=== PATIENT | female | born 1960 | race Caucasian/White ===

== ENCOUNTER 2017-04-07 05:35 | Inpatient (IN) | payer SELFPAY ==
[2017-04-07] MEDS ORDERED: NON FORMULARY ITEM (Albuterol Sulfate (Ventolin Hfa Inhaler) 2 PUFF) INH ×2 (11:00)
[2017-04-07] MEDS: oxyCODONE/APAP 10/325 1 TAB TABLET PO ×6 (11:20→23:30)
[2017-04-07] MEDS: BACLOFEN 10 MG TABLET. PO ×6 (11:20→20:56)
[2017-04-07] MEDS: clonazePAM 0.5 MG TABLET PO ×2 (14:49)
[2017-04-07] MEDS: MORPHINE SULFATE 2 MG/ML DISP.SYRIN. IV ×4 (15:07→19:52)
[2017-04-07] MEDS: ALBUTEROL SULFATE 2.5 MG/3 ML NEBU. NEB ×4 (15:35→20:29)
[2017-04-08] MEDS ORDERED: INFLUENZA VAX SCREEN BY RX. MC ×2 (05:15)
[2017-04-08 05:20] LABS: ADD MAN DIFF? NO
[2017-04-08 05:29] LABS: BASO % 1 % (0-3); EOS # 0.1 x10^3/uL (0.0-0.7); EOS % 2 % (0-3); HEMATOCRIT 32.8 % (36.0-47.0); LYMPH # 2.9 x10^3/uL (1.0-4.8); LYMPH % 40 % (24-48); MEAN CORPUSCULAR HEMOGLOBIN 34 pg (25-35); MEAN CORPUSCULAR HGB CONC 33 g/dL (31-37); MEAN CORPUSCULAR VOLUME 101 fL (79-100); MONO # 0.5 x10^3/uL (0.0-1.1); MONO % 7 % (0-9); NEUT # 3.6 x10^3uL (1.8-7.7); NEUT % 50 % (31-73); PLATELET COUNT 225 x10^3/uL (140-400); RED BLOOD COUNT 3.26 x10^6/uL (3.50-5.40); RED CELL DISTRIBUTION WIDTH 14.5 % (11.5-14.5); WHITE BLOOD COUNT 7.2 x10^3/uL (4.0-11.0)
[2017-04-08 06:00] LABS: ALBUMIN 2.8 g/dL (3.4-5.0); ALK PHOS 57 U/L (46-116); ALT (SGPT) 15 U/L (14-59); ANION GAP 3 (6-14); AST (SGOT) 16 U/L (15-37); BLOOD UREA NITROGEN 8 mg/dL (7-20); BUN/CREATININE RATIO 20 (6-20); CALCIUM 8.4 mg/dL (8.5-10.1); CARBON DIOXIDE 30 mmol/L (21-32); CHLORIDE 108 mmol/L (98-107); CREATININE 0.4 mg/dL (0.6-1.0); GFR 165.1; GLUCOSE 96 mg/dL (70-99); POTASSIUM 3.1 mmol/L (3.5-5.1); SODIUM 141 mmol/L (136-145); TOTAL BILIRUBIN 0.3 mg/dL (0.2-1.0); TOTAL PROTEIN 5.6 g/dL (6.4-8.2)
[2017-04-08] MEDS: oxyCODONE/APAP 10/325 1 TAB TABLET PO ×8 (06:03→23:25)
[2017-04-08] MEDS: ALBUTEROL SULFATE 2.5 MG/3 ML NEBU. NEB ×8 (07:14→19:36)
[2017-04-08] MEDS: BACLOFEN 10 MG TABLET. PO ×6 (08:25→20:28)
[2017-04-08] MEDS: MORPHINE SULFATE 2 MG/ML DISP.SYRIN. IV ×6 (08:25→20:43)
[2017-04-08] MEDS: FLU VACC QS2017-18 (36MOS+)/PF 0.5 ML SYRINGE. VAX IM ×2 (12:02)
[2017-04-09 05:13] LABS: ADD MAN DIFF? NO
[2017-04-09 05:16] LABS: BASO # 0.1 x10^3/uL (0.0-0.2); BASO % 1 % (0-3); EOS # 0.4 x10^3/uL (0.0-0.7); EOS % 7 % (0-3); HEMATOCRIT 34.1 % (36.0-47.0); HEMOGLOBIN 11.5 g/dL (12.0-15.5); LYMPH # 1.9 x10^3/uL (1.0-4.8); LYMPH % 34 % (24-48); MEAN CORPUSCULAR HEMOGLOBIN 34 pg (25-35); MEAN CORPUSCULAR HGB CONC 34 g/dL (31-37); MEAN CORPUSCULAR VOLUME 101 fL (79-100); MONO # 0.4 x10^3/uL (0.0-1.1); MONO % 7 % (0-9); NEUT # 2.8 x10^3uL (1.8-7.7); NEUT % 51 % (31-73); PLATELET COUNT 240 x10^3/uL (140-400); RED BLOOD COUNT 3.36 x10^6/uL (3.50-5.40); RED CELL DISTRIBUTION WIDTH 14.4 % (11.5-14.5); WHITE BLOOD COUNT 5.6 x10^3/uL (4.0-11.0)
[2017-04-09 05:59] LABS: ALBUMIN 2.7 g/dL (3.4-5.0); ALBUMIN/GLOBULIN RATIO 0.9 (1.0-1.7); ALK PHOS 57 U/L (46-116); ALT (SGPT) 15 U/L (14-59); ANION GAP 4 (6-14); AST (SGOT) 14 U/L (15-37); BLOOD UREA NITROGEN 7 mg/dL (7-20); BUN/CREATININE RATIO 18 (6-20); CALCIUM 8.5 mg/dL (8.5-10.1); CARBON DIOXIDE 31 mmol/L (21-32); CHLORIDE 108 mmol/L (98-107); CREATININE 0.4 mg/dL (0.6-1.0); GFR 165.1; GLUCOSE 82 mg/dL (70-99); POTASSIUM 3.2 mmol/L (3.5-5.1); SODIUM 143 mmol/L (136-145); TOTAL BILIRUBIN 0.3 mg/dL (0.2-1.0); TOTAL PROTEIN 5.8 g/dL (6.4-8.2)
[2017-04-09] MEDS: oxyCODONE/APAP 10/325 1 TAB TABLET PO ×6 (06:34→18:06)
[2017-04-09] MEDS: ALBUTEROL SULFATE 2.5 MG/3 ML NEBU. NEB ×8 (08:26→19:43)
[2017-04-09] MEDS: BACLOFEN 10 MG TABLET. PO ×6 (08:32→20:42)
[2017-04-09] MEDS: MORPHINE SULFATE 2 MG/ML DISP.SYRIN. IV ×6 (08:40→20:48)
[2017-04-09] MEDS: clonazePAM 0.5 MG TABLET PO ×4 (11:51→21:31)
[2017-04-09] MEDS: POTASSIUM CHLORIDE 20 MEQ TABLET.ER. PO ×2 (15:01)
[2017-04-10] MEDS: oxyCODONE/APAP 10/325 1 TAB TABLET PO ×6 (00:57→11:37)
[2017-04-10] MEDS: MORPHINE SULFATE 2 MG/ML DISP.SYRIN. IV ×4 (02:09→05:35)
[2017-04-10] MEDS: clonazePAM 0.5 MG TABLET PO ×2 (05:36)
[2017-04-10] MEDS: ALBUTEROL SULFATE 2.5 MG/3 ML NEBU. NEB ×2 (08:11)
[2017-04-10] MEDS: BACLOFEN 10 MG TABLET. PO ×2 (08:26)
== END 2017-04-10 12:10 | disposition home or self-care (01) | DRG 199 ==
LOC: 2 NORTH 05:35
DX: S27.0XXA Traumatic pneumothorax, initial encounter (principal); J96.01 Acute respiratory failure with hypoxia; R64 Cachexia; J44.1 Chronic obstructive pulmonary disease with (acute) exacerbation; F11.20 Opioid dependence, uncomplicated; G89.4 Chronic pain syndrome; M79.7 Fibromyalgia; F17.210 Nicotine dependence, cigarettes, uncomplicated; F32.9 Major depressive disorder, single episode, unspecified; F41.9 Anxiety disorder, unspecified; W19.XXXA Unspecified fall, initial encounter; Z98.51 Tubal ligation status; Z90.710 Acquired absence of both cervix and uterus; Z90.722 Acquired absence of ovaries, bilateral; Z90.79 Acquired absence of other genital organ(s); Z82.3 Family history of stroke; Z80.1 Family history of malignant neoplasm of trachea, bronchus and lung; Z88.5 Allergy status to narcotic agent; Z88.8 Allergy status to other drugs, medicaments and biological substances; Y93.89 Activity, other specified; Y92.89 Other specified places as the place of occurrence of the external cause; Y99.8 Other external cause status; Z91.81 History of falling
CPT/HCPCS: 36415; 71045; 80053; 85025; 90686; 94640; 94760; 97162-GP; 97166-GO; 97530-GO; 97535-GO; 99406; J2270; J7613